=== PATIENT | female | born 1995 | race Caucasian/White ===

== ENCOUNTER 2016-10-27 03:29 | Emergency (ER) | payer SELFPAY ==
[2016-10-27 03:42] VITALS: BP 118/91
--- NOTE | 2016-10-27 03:51 | ED Physician Documentation ---
Ear Complaints - HISTORIAN Historian: patient - HPI Stated Complaint: thinks she has a bug in her Rt ear Chief Complaint: Ear Complaints Further Comments: yes (20 year old female presents with complaint of "I think I have a bug in my ear".) - ROS CONST: no problems CVS/RESP: none GI/: denies: nausea, vomiting MS/SKIN/LYMPH: none All Systems -: Yes - PAST HX Past History: none Allergies/Adverse Reactions: Allergies Allergy/AdvReac Type Severity Reaction Status Date / Time No Known Allergies Allergy Verified 10/27/16 03:40 Home Medications: Ambulatory Orders Medication Instructions Recorded NK [NK] 10/27/16 - SOCIAL HX Smoking History: non-smoker - FAMILY HX Family History: No - VITAL SIGNS Vital Signs: Vital Signs Temp Pulse Resp BP Pulse Ox 83 18 118/91 99 10/27/16 03:29 10/27/16 03:29 10/27/16 03:29 10/27/16 03:29 - REVIEWED ASSESSMENTS Nursing Assessment Reviewed: Yes Vitals Reviewed: Yes Ear Complaint Physical Exam - EXAM General Appearance: mild distress Ear: auricle nml, oxyhydrogen welder.canal nml, TM's nml, other (NO FB in right or left ear) Skin: nml color, no skin rash Neuro/Psych: oriented x3, mood/affect nml Discharge Clincal Impression: Right ear pain Referrals: Mana May FNP [Primary Care Provider] - 2 Days Home Medications: Ambulatory Orders NK [NK] 10/27/16 Condition: Stable Disposition: 01 HOME, SELF-CARE Decision to Admit: NO Decision Time: 03:51
== END 2016-10-27 03:50 | disposition home or self-care (01) ==
LOC: ED 03:29
DX: H92.01 Otalgia, right ear (principal)
CPT/HCPCS: 99282; 99283

== ENCOUNTER 2019-08-06 09:37 | Emergency (ER) | payer BC, OTHER ==
--- NOTE | 2019-08-06 10:03 | ED Physician Documentation ---
Upper Respiratory Symptoms - HISTORIAN Historian: patient - HPI Chief Complaint: Cough/ Upper Respiratory Additional Information: 23 year old female presents to the ER with c/o cough, congestion, sinus pressure, nasal drainage, and sore throat- symptoms started 2-3 days ago; she is not sure if she has had any fevers. Onset: days ago Duration: constant Context: denies: recent foreign travel, multiple patients Severity: mild Associated Symptoms: earache, runny nose, sinus pain, sinus drainage, sore throat, other (states that she wheezes at night). denies: fever, chills Worsened by Deep Breath: No - ROS CONST/EYES: denies: eye redness, eye itching CVS/RESP: none LYMPH: denies: rash GI/: none NEURO/PSYCH: denies: dizziness MS/SKIN: denies: muscle aches - PAST HX Lung Disease: none PE Risk Factors: none Surgeries/Procedures: none Immunizations: UTD Allergies/Adverse Reactions: Allergies Allergy/AdvReac Type Severity Reaction Status Date / Time No Known Allergies Allergy Verified 08/06/19 09:55 Home Medications: Ambulatory Orders Medication Instructions Recorded NK 10/27/16 - SOCIAL HX Smoking History: non-smoker Alcohol Use: none Drug Use: none - FAMILY HX Family History: none - VITAL SIGNS Vital Signs: Vital Signs Temp Pulse Resp BP Pulse Ox 98.2 F 108 H 18 120/81 97 08/06/19 10:10 08/06/19 10:10 08/06/19 10:10 08/06/19 10:10 08/06/19 10:10 - REVIEWED ASSESSMENTS Nursing Assessment Reviewed: Yes Vitals Reviewed: Yes Upper Respiratory Symptoms - EXAM General Appearance: alert, mild distress EENT: eyes nml inspection, nml ENT inspection, lids & conjunct. nml, PERRL, ear nml, pain over sinuses, maxillary, rhinorrhea, pharynx nml, airway nml Neck: normal inspection, supple Respiratory: breath sounds nml Abdomen: non-tender, nml bowel sounds CVS: heart sounds normal, equal pulses Skin: warm,dry, pallor Extremities: non-tender, normal range of motion Neuro/Psych: oriented x3, neuro intact, mood/affect nml Discharge Clincal Impression: Acute sinus infection Referrals: Mana May FNP [Primary Care Provider] - 2 Days Additional Instructions: Take antibiotic; augmentin 875mg by mouth twice a day for 10 days Flonase nasal spray; 1 spray in each nostril twice a day Steroid; Medrol dose pack as directed Albuterol inhaler; 1-2 puffs every 4-6 hours as needed for shortness of breath or wheezing Use a humidifier Warm salt water gargles 4 times a day 1 cup of hot tea with tsp of honey will thin secretions Follow up with PCP in one week for re-evaluation Condition: Good Disposition: 01 HOME, SELF-CARE Decision to Admit: NO Decision Time: 10:04
[2019-08-06 10:11] VITALS: BP 120/81
== END 2019-08-06 10:00 | disposition home or self-care (01) ==
LOC: ED 09:37
DX: J01.90 Acute sinusitis, unspecified (principal)
CPT/HCPCS: 99282